=== PATIENT | female | born 1980 | race Caucasian/White ===

== ENCOUNTER 2020-09-29 06:08 | Emergency (ER) | payer OTHER ==
[2020-09-29] MEDS ORDERED: NS IV 1000 ML 1,000 ML IV STA (06:34)
[2020-09-29 06:40] LABS: BASOPHILS # (AUTO) 0.1 10^3/uL (0.0-0.1); BASOPHILS % (AUTO) 0 % (0-10); EOSINOPHILS # (AUTO) 0.1 10^3/uL (0.0-0.3); EOSINOPHILS % (AUTO) 0 % (0-10); HEMATOCRIT 42 % (35-52); HEMOGLOBIN 13.9 G/DL (11.5-16.0); LYMPHOCYTES # (AUTO) 2.2 X 10^3 (1.0-4.0); LYMPHOCYTES % (AUTO) 17 % (12-44); MEAN CORPUSCULAR HEMOGLOBIN 29 PG (25-34); MEAN CORPUSCULAR HGB CONC 33 G/DL (32-36); MEAN CORPUSCULAR VOLUME 87 FL (80-99); MEAN PLATELET VOLUME 10.1 FL (7.4-10.4); MONOCYTES # (AUTO) 0.7 X 10^3 (0.0-1.0); MONOCYTES % (AUTO) 5 % (0-12); NEUTROPHILS % (AUTO) 77 % (42-75); PLATELET COUNT 265 10^3/uL (130-400)
--- NOTE | 2020-09-29 06:43 | ED Abdominal Pain ---
General Chief Complaint: Abdominal/GI Problems Stated Complaint: STOMACHE PAIN/CRAMPS Nursing Triage Note: Pt complaining of left flank pain with abd pain and nausea. Sepsis Screen: No Definite Risk Source of Information: Patient Exam Limitations: No Limitations (KALYAN CHANG MD) History of Present Illness Date Seen by Provider: Sep 29, 2020 Time Seen by Provider: 06:38 Patient is a 39-year-old female presenting to the emergency department with a complaint of epigastric abdominal pain with sharp left flank pain. Patient states the symptoms woke her from her sleep with severe waves of sharp cramping pain in her epigastric region. She notes that the epigastric pain radiates into her left flank and is sharp and stabbing. No recent dietary changes. She describes it as as a knife is in her left flank. Pain in her left flank she thinks has possibly been going on for a week, but has worsened in intensity. She denies any dysuria, increased urinary frequency, foul-smelling urine. She has associated nausea, but no vomiting, no fevers. No previous similar episodes. She denies any specific exacerbating or relieving factors. No previous history of kidney stones. No recent NSAID use. Denies drug, alcohol, tobacco use. Patient is currently employed at the school. (KALYAN CHANG MD) Allergies and Home Medications Allergies Coded Allergies: No Known Drug Allergies (Unverified , 09/29/20) Patient Home Medication List Home Medication List Reviewed: Yes (KALYAN CHANG MD) Review of Systems Review of Systems Constitutional: No fever; weakness Respiratory: Denies Cough Cardiovascular: Denies Chest Pain Gastrointestinal: Abdominal Pain; Denies Constipated, Denies Diarrhea; Nausea; Denies Vomiting Genitourinary: Denies Burning; Flank Pain (KALYAN CHANG MD) All Other Systems Reviewed Negative Unless Noted: Yes (KALYAN CHANG MD) Past Xfnnikw-Fhuqpx-Xfvkrs Hx Patient Social History Alcohol Use: Denies Use Recreational Drug Use: No 2nd Hand Smoke Exposure: No Recent Foreign Travel: No Contact w/Someone Who Travel: No Recent Infectious Disease Expo: No Recent Hopitalizations: No Physical Abuse: No Sexual Abuse: No (KALYAN CHANG MD) Past Medical History Surgeries: Yes Tubal Ligation Respiratory: No Cardiac: No Neurological: No Genitourinary: No Gastrointestinal: No Musculoskeletal: No Endocrine: No HEENT: No Cancer: No Psychosocial: No Integumentary: No Blood Disorders: No (KALYAN CHANG MD) Family Medical History Reviewed Nursing Family Hx (KALYAN CHANG MD) Physical Exam Vital Signs Vital Signs - First Documented 09/29/20 06:18 Temp 36.4 Pulse 75 Resp 18 B/P (MAP) 173/80 (111) Pulse Ox 99 O2 Delivery Room Air (MINDY GOODMAN DO) Vital Signs Capillary Refill : Less Than 3 Seconds (KALYAN CHANG MD) Height/Weight/BMI Height: '" Weight: lbs. oz. kg; BMI Method: General Appearance: moderate distress HEENT: PERRL/EOMI, normal ENT inspection Neck: supple Respiratory: no respiratory distress, no accessory muscle use Cardiovascular: regular rate, rhythm, no edema Gastrointestinal: other (Patient has mild tenderness to palpation of the epigastric region, mild guarding is appreciated. She has left-sided flank pain to palpation. Remainder of her abdominal examination is benign without right upper or right lower quadrant abdominal pain.) Extremities: normal inspection Back: other (Left-sided CVA tenderness.) Neurologic/Psychiatric: no motor/sensory deficits, alert, normal mood/affect Skin: normal color, warm/dry (KALYAN CHANG MD) Progress/Results/Core Measures Results/Orders Lab Results Laboratory Tests Test 09/29/20 06:28 09/29/20 06:55 Range/Units White Blood Count 13.0 H 4.3-11.0 10^3/uL Red Blood Count 4.82 4.35-5.85 10^6/uL Hemoglobin 13.9 11.5-16.0 G/DL Hematocrit 42 35-52 % Mean Corpuscular Volume 87 80-99 FL Mean Corpuscular Hemoglobin 29 25-34 PG Mean Corpuscular Hemoglobin Concent 33 32-36 G/DL Red Cell Distribution Width 13.2 10.0-14.5 % Platelet Count 265 130-400 10^3/uL Mean Platelet Volume 10.1 7.4-10.4 FL Immature Granulocyte % (Auto) 0 % Neutrophils (%) (Auto) 77 H 42-75 % Lymphocytes (%) (Auto) 17 12-44 % Monocytes (%) (Auto) 5 0-12 % Eosinophils (%) (Auto) 0 0-10 % Basophils (%) (Auto) 0 0-10 % Neutrophils # (Auto) 10.0 H 1.8-7.8 X 10^3 Lymphocytes # (Auto) 2.2 1.0-4.0 X 10^3 Monocytes # (Auto) 0.7 0.0-1.0 X 10^3 Eosinophils # (Auto) 0.1 0.0-0.3 10^3/uL Basophils # (Auto) 0.1 0.0-0.1 10^3/uL Immature Granulocyte # (Auto) 0.0 0.0-0.1 10^3/uL Sodium Level 133 L 135-145 MMOL/L Potassium Level 4.1 3.6-5.0 MMOL/L Chloride Level 101 98-107 MMOL/L Carbon Dioxide Level 19 L 21-32 MMOL/L Anion Gap 13 5-14 MMOL/L Blood Urea Nitrogen 24 H 7-18 MG/DL Creatinine 1.24 0.60-1.30 MG/DL Estimat Glomerular Filtration Rate 48 BUN/Creatinine Ratio 19 Glucose Level 137 H 70-105 MG/DL Calcium Level 9.6 8.5-10.1 MG/DL Corrected Calcium 9.2 8.5-10.1 MG/DL Total Bilirubin 0.4 0.1-1.0 MG/DL Aspartate Amino Transf (AST/SGOT) 19 5-34 U/L Alanine Aminotransferase (ALT/SGPT) 20 0-55 U/L Alkaline Phosphatase 78 40-136 U/L Troponin I < 0.30 <0.30 NG/ML Total Protein 7.2 6.4-8.2 GM/DL Albumin 4.5 3.2-4.5 GM/DL Lipase 31 8-78 U/L Urine Color YELLOW Urine Clarity CLEAR Urine pH 8.5 5-9 Urine Specific Lapel 1.020 1.016-1.022 Urine Protein NEGATIVE NEGATIVE Urine Glucose (UA) NEGATIVE NEGATIVE Urine Ketones 1+ H NEGATIVE Urine Nitrite NEGATIVE NEGATIVE Urine Bilirubin NEGATIVE NEGATIVE Urine Urobilinogen 0.2 < = 1.0 MG/DL Urine Leukocyte Esterase NEGATIVE NEGATIVE Urine RBC (Auto) NEGATIVE NEGATIVE Urine RBC NONE /HPF Urine WBC NONE /HPF Urine Squamous Epithelial Cells 0-2 /HPF Urine Crystals PRESENT H /LPF Urine Amorphous Sediment MOD GUSTAVO PHOSPHATE H /LPF Urine Bacteria NONE /HPF Urine Casts NONE /LPF Urine Mucus NEGATIVE /LPF Urine Culture Indicated NO Urine Test NEGATIVE NEGATIVE (MINDY GOODMAN DO) My Orders Orders - MINDY GOODMAN DO Ondansetron Injection (Zofran Injectio (09/29/20 08:00) Ketorolac Injection (Toradol Injection) (09/29/20 08:00) Hydromorphone Injection (Dilaudid Inject (09/29/20 08:00) Ns Iv 1000 Ml (Sodium Chloride 0.9%) (09/29/20 08:00) Ceftriaxone For Iv Use (Rocephin For I (09/29/20 08:00) Tamsulosin Capsule (Flomax Capsule) (09/29/20 08:15) (MINDY GOODMAN DO) Medications Given in ED Current Medications Medications Dose Ordered Sig/La Route Start Time Stop Time Status Last Admin Dose Admin Al Hydrox/Mg Hydrox/Simethicone 30 ml ONCE ONCE PO 09/29/20 06:45 09/29/20 06:46 DC 09/29/20 06:45 30 ML Ceftriaxone Sodium 1000 mg/ Sterile Water 10 ml @ 200 mls/hr ONCE ONCE IV 09/29/20 08:00 09/29/20 08:02 DC 09/29/20 08:19 200 MLS/HR Famotidine 20 mg ONCE ONCE IVP 09/29/20 06:45 09/29/20 06:46 DC 09/29/20 06:44 20 MG Hydromorphone HCl 0.5 mg ONCE ONCE IV 09/29/20 06:45 09/29/20 06:46 DC 09/29/20 06:45 0.5 MG Hydromorphone HCl 1 mg ONCE ONCE IVP 09/29/20 08:00 09/29/20 08:01 DC 09/29/20 08:19 1 MG Ketorolac Tromethamine 15 mg ONCE ONCE IVP 09/29/20 08:00 09/29/20 08:01 DC 09/29/20 08:19 15 MG Lidocaine HCl 15 ml ONCE ONCE PO 09/29/20 06:45 09/29/20 06:46 DC 09/29/20 06:45 15 ML Ondansetron HCl 4 mg ONCE ONCE IVP 09/29/20 06:45 09/29/20 06:46 DC 09/29/20 06:44 4 MG Ondansetron HCl 4 mg ONCE ONCE IVP 09/29/20 08:00 09/29/20 08:01 DC 09/29/20 08:18 4 MG Tamsulosin HCl 0.4 mg ONCE ONCE PO 09/29/20 08:15 09/29/20 08:16 DC 09/29/20 08:20 0.4 MG (MINDY GOODMAN DO) Vital Signs/I&O 09/29/20 06:18 Temp 36.4 Pulse 75 Resp 18 B/P (MAP) 173/80 (111) Pulse Ox 99 O2 Delivery Room Air (MINDY GOODMAN DO) Blood Pressure Mean: 111 Progress Progress Note : Progress Note Patient appeared uncomfortable on examination. She did have abdominal pain in the epigastric region along with left-sided flank pain with CVA tenderness with guarding. Possible peptic ulcer disease versus gastritis versus kidney stone versus pancreatitis. Laboratory work, CT abdomen pelvis without contrast was ordered. Symptomatic control with Dilaudid, Zofran, Mylanta, oral lidocaine, IV Pepcid was ordered. Patient care was transferred to Dr. Goodman at 07 100 pending laboratory work, CT scan. (KALYAN CHANG MD) Progress Note : Progress Note Joni - I took over care at 0700 and went over result of testing with patient. Patient has a left proximal 7mm ureter calculus causing moderate hydronephrosis. She says that her pain is improved however she still does have an approximate 5 out of 10 pain. I spoke to the urologist on-call Dr. Samuel and he said his long as pain is controlled he is agreeable to outpatient treatment and asked me to start antibiotics Flomax and have her call the office tomorrow for outpatient treatment. I told her the plan and she very much appreciated this. She did not want to be in the hospital. I told her if she has worsening pain fevers vomiting or other general concerns she should come back to the emergency department immediately and then she will require admission to the hospital. Patient aware and agreeable with plan for discharge and verbalized understanding of the need for short-term follow-up and strict ED return precautions discussed as above. (MINDY GOODMAN DO) Initial ECG Impression Date: Sep 29, 2020 Initial ECG Impression Time: 06:53 Comment EKG obtained on 09/29/2020 at 06 38 significant for normal sinus rhythm, rate is 67, normal intervals, normal axis, no evidence of ventricular hypertrophy, no STEMI criteria. Slight elevation approximately half millimeter in V2, no reciprocal changes appreciated. No previous for comparison. (KALYAN CHANG MD) Departure Impression Primary Impression: Left ureteral calculus Additional Impressions: Hydronephrosis Leukocytosis Disposition: HOME, SELF-CARE Condition: Stable Departure-Patient Inst. Referrals: MATTHEW SAMUEL MD Patient Instructions: Renal Colic (DC) Add. Discharge Instructions: Drink plenty of fluids, call Dr. Samuel's office tomorrow morning. Come back with worsening pain. Thank you! All discharge instructions reviewed with patient and/or family. Voiced understanding. Scripts Cephalexin (Keflex) 500 Mg Capsule 500 MG PO TID, #21 CAP Prov: MINDY GOODMAN DO 09/29/20 Ondansetron (Ondansetron Odt) 4 Mg Tab.rapdis 4 MG PO Q6H PRN for NAUSEA/VOMITING-1ST LINE, #14 TAB Prov: MINDY GOODMAN DO 09/29/20 Oxycodone HCl/Acetaminophen (Percocet 5-325 mg Tablet) 1 Each Tablet 1 TAB PO Q4H for PAIN-MODERATE MDD 6 TABS for 7 Days, #14 TAB Prov: MINDY GOODMAN DO 09/29/20 Ibuprofen (Ibuprofen) 600 Mg Tablet 600 MG PO Q6H PRN for PAIN-MILD, #30 TAB Prov: MINDY GOODMAN DO 09/29/20 KALYAN CHANG MD Sep 29, 2020 06:43 MINDY GOODMAN DO Sep 29, 2020 08:46
[2020-09-29] MEDS ORDERED: ANTACID SUSP 30 ML UDC (MYLANTA) PO ONE (06:45)
[2020-09-29] MEDS ORDERED: HYDROmorphone 2 MG/ML VIAL (DILAUDID) IV ONE (06:45)
[2020-09-29] MEDS ORDERED: FAMOTIDINE 20MG/2ML IV (PEPCID) IVP ONE (06:45)
[2020-09-29] MEDS ORDERED: ONDANSETRON 4 MG/2 ML (SDV) Z0FRAN IVP ONE ×2 (06:45→08:00)
[2020-09-29] MEDS ORDERED: LIDOCAINE 2% VISCOUS 15 ML UDC PO ONE (06:45)
[2020-09-29 07:03] LABS: ALBUMIN 4.5 GM/DL (3.2-4.5); BILIRUBIN,TOTAL 0.4 MG/DL (0.1-1.0); CALCIUM 9.6 MG/DL (8.5-10.1); CREATININE SERUM 1.24 MG/DL (0.60-1.30); POTASSIUM 4.1 MMOL/L (3.6-5.0); TOTAL PROTEIN 7.2 GM/DL (6.4-8.2)
[2020-09-29 07:06] LABS: CLARITY,URINE CLEAR; COLOR,URINE YELLOW; PH,URINE 8.5 (5-9)
[2020-09-29 07:07] LABS: AMORPHOUS SEDIMENT,UR MOD AMOR PHOSPHATE /LPF; BILIRUBIN,URINE NEGATIVE (NEGATIVE); GLUCOSE, URINE (UA) NEGATIVE (NEGATIVE); KETONES,URINE 1+ (NEGATIVE); LEUKOCYTE ESTERASE ,URINE NEGATIVE (NEGATIVE); NITRITE,URINE NEGATIVE (NEGATIVE); PROTEIN,URINE NEGATIVE (NEGATIVE); SQUAMOUS EPITHELIAL CELL,UR 0-2 /HPF
--- NOTE | 2020-09-29 07:38 | Diagnostic Imaging Report ---
CT ABDOMEN/PELVIS WO TECHNIQUE: Unenhanced CT imaging of the abdomen and pelvis was performed. 2-D reformats are created and submitted for interpretation. Automatic exposure controls were utilized to optimize patient dose. INDICATION: Left flank pain. COMPARISON: None available. FINDINGS: Evaluation of the abdominal viscera is mildly limited without contrast. Lower chest: The lung bases are clear. No pericardial or pleural effusion. Peritoneum: No free intraperitoneal air or fluid. Liver and biliary system: Unenhanced liver is normal. The gallbladder is normal. No biliary duct dilation. Spleen and Pancreas: Spleen is normal. Unenhanced pancreas is grossly normal. Adrenals: Normal. tract: Mild to moderate left hydronephrosis with perinephric stranding due to an obstructing 7 mm stone at the left ureteropelvic junction. Additional nonobstructing 2 mm stone is present in the upper pole the right kidney. No ureteral stone on either side. Urinary bladder is decompressed. Uterus and ovaries are normal in appearance. GI tract: Stomach is partially filled fluid and air and there is no wall thickening. No bowel obstruction. No pericolonic inflammatory changes. The appendix is fluid-filled and mildly distended measuring up to 9 mm but there is no surrounding inflammatory change. Vasculature and Lymph nodes: Normal caliber aorta. No abdominal or pelvic lymphadenopathy. Musculoskeletal: No concerning osseous lesion. IMPRESSION: 1. A 7 mm obstructing stone is present at the left UPJ resulting in mild to moderate hydronephrosis. 2. Additional nonobstructing 2 mm stone in the upper pole the right kidney. 3. Mildly dilated proximal appendix measuring 9 mm does not have surrounding inflammatory change. This may be physiologic for this patient especially in the absence of clinical features of acute appendicitis. Dictated by: Dictated on workstation # [id number]
[2020-09-29] MEDS ORDERED: KETOROLAC 30 MG/ML VIAL IVP ONE (08:00)
[2020-09-29] MEDS ORDERED: HYDROmorphone 2 MG/ML VIAL (DILAUDID) IVP ONE (08:00)
[2020-09-29] MEDS ORDERED: cefTRIAXone FOR IV USE 1,000 MG in WATER (STERILE) FOR INJECTION 10 ML IV ONE (08:00)
[2020-09-29] MEDS ORDERED: NS IV 1000 ML 1,000 ML IV SCH (08:00)
[2020-09-29] MEDS ORDERED: TAMSULOSIN 0.4 MG (FLOMAX) CAP PO ONE (08:15)
[2020-09-29] MEDS ORDERED: ONDA4TAB11 PO (08:46)
[2020-09-29] MEDS ORDERED: CEPH-507 PO (08:46)
[2020-09-29] MEDS ORDERED: OXYC1TAB87 PO (08:46)
[2020-09-29] MEDS ORDERED: IBUP-1773 PO (08:46)
[2020-09-29 09:03] VITALS: BP 160/75
[2020-10-01] MEDS ORDERED: TMSL.4C PO ×2 (12:06→12:08)
[2020-10-01] MEDS ORDERED: PHEN-640 PO (12:08)
== END 2020-09-29 09:03 | disposition home or self-care (01) ==
LOC: ER FS 06:13
DX: N13.2 Hydronephrosis with renal and ureteral calculous obstruction (principal); D72.829 Elevated white blood cell count, unspecified
CPT/HCPCS: 36415; 74176; 80053; 81000; 83690; 84484; 84703; 85025; 93005

== ENCOUNTER → 2020-09-30 | Outpatient (CLI) | payer OTHER ==
[~2020-09-30] MED LIST: CEPH-507 PO; IBUP-1773 PO; ONDA4TAB11 PO; OXYC1TAB87 PO; PHEN-640 PO; TMSL.4C PO
--- NOTE | 2020-09-30 12:56 | Diagnostic Imaging Report ---
INDICATION: LT UPJ STONE/RT RENAL STONE. TECHNIQUE: 2 supine view of the abdomen 12:38 PM CORRELATION STUDY: Renal colic CT 09/29/2020 FINDINGS: Imaging of the abdomen demonstrates the bowel gas pattern to be unremarkable and without evidence for obstruction. 7 mm calcification left upper quadrant corresponds to the recently identified left pelvic stone. Likely relatively stable to perhaps slightly retracted in its location. Tiny punctate stones over superior pole right kidney also present. Likely tiny phlebolith calcifications of bilateral pelvis. IMPRESSION: 1. 7 mm stone left upper quadrant corresponds to the recently identified left UPJ stone. 2. Punctate calcification right upper pole remains present as well. Dictated by: Dictated on workstation # [id number]
== END ==
LOC: RAD 12:15
PROVIDERS: ATTEND Urology
DX: N20.0 Calculus of kidney (principal)
CPT/HCPCS: 74018

== ENCOUNTER 2020-10-01 09:54 | Day surgery (SDC) | payer OTHER ==
[~2020-10-01] VITALS: Ht 170.2 cm; Wt 113.6 kg
[2020-10-01] VITALS (10 sets, daily range): BP systolic 121–161; BP diastolic 57–108
[~2020-10-01 09:54] MED LIST changes: -PHEN-640 PO; -TMSL.4C PO
[2020-10-01] MEDS ORDERED: WATER (STERILE) FOR INJECTION 10 ML ONE (10:05)
[2020-10-01] MEDS ORDERED: cefTRIAXone 1,000 MG IV (ROCEPHIN) VIAL ONE (10:05)
--- NOTE | 2020-10-01 10:12 | Progress Note-Pre Operative ---
Pre-Operative Progress Note H&P Reviewed The H&P was reviewed, patient examined and no changes noted. Date Seen by Provider: Oct 01, 2020 Time Seen by Provider: 10:12 Date H&P Reviewed: Oct 01, 2020 Time H&P Reviewed: 10:12 Pre-Operative Diagnosis: LT RENAL STONE MATTHEW SAMUEL MD Oct 01, 2020 10:12
--- NOTE | 2020-10-01 10:13 | Progress Note-Post Operative ---
Post-Operative Progess Note Surgeon (s)/Partner Marketing Manager (s) Surgeon MATTHEW SAMUEL MD Partner Marketing Manager: NONE Pre-Operative Diagnosis LT RENAL STONE Post-Operative Diagnosis SAME Procedure & Operative Findings Date of Procedure 10/01/20 Procedure Performed/Findings CYSTOSCOPY, LT RENAL STONE MANIPULATION AND INSERTION OF STENT Anesthesia Type GENERAL Estimated Blood Loss Estimated blood loss (mL): NONE Specimens/Packing Specimens Removed NONE Packing: NONE MATTHEW SAMUEL MD Oct 01, 2020 10:13
--- NOTE | 2020-10-01 10:15 | Discharge Inst-Urology ---
Discharge Inst-Urology Reconcile Patient Problems Problems Reviewed?: Yes Final Diagnosis LT RENAL STONE Patient Instructions/Follow Up Plan/Assessment/Instructions Please make appointment to been seen in office Sunday 10/07, KUB prior to it. KUB on way home Increase oral fluids for 48 hours and then as needed. Diet and Activity as tolerated. If questions or concerns contact your physician Or seek help at emergency department. MATTHEW SAMUEL MD Oct 01, 2020 10:15
[2020-10-01] MEDS ORDERED: LACTATED RINGERS 1,000 ML IV PRN (10:30)
[2020-10-01] MEDS ORDERED: cefTRIAXone FOR IV USE 1,000 MG in WATER (STERILE) FOR INJECTION 10 ML IV ONE (10:30)
[2020-10-01] MEDS ORDERED: fentaNYL INJECTION 100 MCG/2 ML AMP ONE (10:33)
[2020-10-01] MEDS ORDERED: proPOfol 200 MG/20 ML (DIPRIVAN) VIAL IV ONE (10:33)
[2020-10-01] MEDS ORDERED: SEVOFLURANE (ULTANE) 15 ML INHAL SOLN ONE ×2 (10:33→10:56)
[2020-10-01] MEDS ORDERED: ONDANSETRON 4 MG/2 ML (SDV) Z0FRAN ONE (10:33)
[2020-10-01] MEDS ORDERED: MIDAZOLAM 2 MG/2 ML (VERSED) VIAL ONE (10:33)
[2020-10-01 10:53] LABS: PHOSPHORUS 2.2 MG/DL (2.3-4.7)
[2020-10-01] MEDS ORDERED: MEPERIDINE (DEMEROL) INJ 50 MG/ML IVP ONE (11:00)
[2020-10-01] MEDS ORDERED: morphine INJ 10 MG/ML 1ML (SYR OR VIAL) IVP ONE (11:00)
[2020-10-01] MEDS ORDERED: fentaNYL INJECTION 100 MCG/2 ML AMP IVP ONE (11:00)
[2020-10-01] MEDS ORDERED: ONDANSETRON 4 MG/2 ML (SDV) Z0FRAN IVP PRN (11:00)
--- NOTE | 2020-10-01 11:23 | Diagnostic Imaging Report ---
INDICATION: Left ureteral stone. TECHNIQUE: Two supine views of the abdomen at 10:09 AM. CORRELATION STUDY: 09/30/2020. FINDINGS: Scattered gas-filled loops of bowel are present. The possibility of a mild ileus pattern is not excluded. No findings to suggest a high degree obstruction. An approximately 7-8 mm stone projects over the inferior pole of the left kidney. No definitive calcification along the expected course of either ureter. IMPRESSION: Calcification projecting over the expected location of the inferior pole of the left kidney. This may be slightly retracted when compared to the prior CT examination. The possibility of retrograde migration of the stone is not excluded. Correlate with the patient's symptoms. Dictated by: Dictated on workstation # [id number]
--- NOTE | 2020-10-01 12:00 | NUR ---
TO AMB SURG FROM PAR PER CART. ALERT, DENIES COMPLAINTS. PO FLUIDS PROVIDED.
[2020-10-01] MEDS ORDERED: TMSL.4C PO ×4 (12:06→12:08)
[2020-10-01] MEDS ORDERED: PHEN-640 PO ×2 (12:08)
--- NOTE | 2020-10-01 12:30 | Anesthesia-General Post-Op ---
General Patient Condition Mental Status/LOC: Same as Preop Cardiovascular: Satisfactory Nausea/Vomiting: Absent Respiratory: Satisfactory Pain: Controlled Complications: Absent Post Op Complications Complications None Follow Up Care/Instructions Patient Instructions None needed. Anesthesia/Patient Condition Patient Condition Patient is doing well, no complaints, stable vital signs, no apparent adverse anesthesia problems. No complications reported per nursing. NILDA CASTILLO CRNA Oct 01, 2020 12:30
[2020-10-01] MEDS ORDERED: PHENAZOPYRIDINE 100 MG (PYRIDIUM) TABLET ONE (12:49)
--- NOTE | 2020-10-01 12:54 | NUR ---
REPORTS URETHRAL "IRRITATION", RATES 1. PYRIDIUM 200 MG GIVEN PO. HAS BEEN UP X2 TO BR, VOIDED CLEAR YELLOW URINE WITHOUT PROBLEM.
[2020-10-01] MEDS ORDERED: PHENAZOPYRIDINE 100 MG (PYRIDIUM) TABLET PO ONE (13:00)
--- NOTE | 2020-10-01 13:07 | Diagnostic Imaging Report ---
INDICATION: Calculus. COMPARISON: Earlier this same day. FINDINGS: A single frontal radiographic view of the abdomen was obtained and demonstrates interval placement of a left-sided double-J ureteral stent. A left renal calculus is again identified. No unexpected radiopaque foreign bodies are seen. Small bowel loops are nondistended. There is no large collection of free intraperitoneal air. Osseous structures show no acute abnormalities. IMPRESSION: Redemonstration of a left renal calculus with a new left-sided double-J ureteral stent. Dictated by: Dictated on workstation # [id number]
--- NOTE | 2020-10-01 13:50 | Diagnostic Imaging Report ---
EXAMINATION: Fluoroscopy at 11:10 AM. INDICATION: Left cystoscopy. FINDINGS: Fluoroscopic assistance was provided for Dr. Mejía during his left ureteroscopy with stent insertion procedure. 19.4 seconds of fluoroscopy time was utilized. A single spot film of the left abdomen was obtained. There is a ureteral stent in place overlying the expected location of the left kidney. IMPRESSION: Fluoroscopic assistance was provided for Dr. Mejía. Dictated by: Dictated on workstation # [id number]
--- NOTE | 2020-10-01 16:31 | OPERATIVE REPORT ---
DATE OF SERVICE: 10/01/2020 PREOPERATIVE DIAGNOSIS: Left renal stone at the UPJ. POSTOPERATIVE DIAGNOSES: 1. Left renal stone at the UPJ. 2. Cystorectocele. OPERATION PERFORMED: Cystoscopy, left renal stone manipulation and insertion of left stent. SURGEON: Deangelo Samuel MD. ANESTHESIA: General. COMPLICATIONS: None. DESCRIPTION OF PROCEDURE: Under satisfactory general anesthesia and the patient in the lithotomy position, the genitalia were prepped and draped in the usual sterile fashion. Cystoscope was introduced under vision and noted at least a 2+ cystorectocele. The bladder was inspected. Because of the cystocele, the ureteral orifices were pushed down and they were stenotic and facing somewhat upward. I reduced the cystocele using a sponge on a stick with the scrub nurse adjusting it to bring the ureteral orifice up since I was not able to insert a stent through it originally. Because of the small opening of the ureteral orifice, I went ahead and dilated it with a spiral tip ureteral catheter 5-Albanian and 6-Albanian to be able to insert a 6-Albanian stent guided fluoroscopically all the way up to the kidney, pushed the stone back into the kidney, removed the guidewire and the stent was seen nicely proximally fluoroscopically and distally endoscopically. Bladder was evacuated and the cystoscope was removed. The patient tolerated the procedure and anesthesia well and was sent to the recovery room in stable condition. PLAN: ESWL on her next Wednesday. We will see her at the office on Wednesday, explained to her the procedure and the preops. Job ID: [id number] DocumentID: [id number] Dictated Date: 10/01/2020 11:22:17 Ambulette Driver Date: 10/01/2020 16:30:46 Dictated By: DEANGELO SAMUEL MD
== END 2020-10-01 13:20 | disposition home or self-care (01) ==
LOC: SDC 09:54
PROVIDERS: ATTEND Urology
DX: N20.2 Calculus of kidney with calculus of ureter (principal); N81.10 Cystocele, unspecified; N81.6 Rectocele; Z20.828 Contact with and (suspected) exposure to other viral communicable diseases
CPT/HCPCS: 52332; 52352; 74018; 76000; 83970; 84100; 84550; 84703; 87081; U0002; 36415; 87635

== ENCOUNTER → 2020-10-07 | Outpatient (CLI) | payer OTHER ==
[~2020-10-07] MED LIST changes: +NITR-65 PO; +PHEN-640 PO; +TMSL.4C PO; +TRAM50TA3 PO
--- NOTE | 2020-10-07 15:46 | Diagnostic Imaging Report ---
INDICATION: Left nephrolithiasis KUB 2:37 PM There is left double-J ureteral stent. This appears to migrate into the proximal ureter. The lower portion remains in the urinary bladder. There is a 6 mm calculus in lower pole calyx of left kidney. IMPRESSION: Left nephrolithiasis. Ureter stent appears to have migrated out of the renal pelvis. Dictated by: Dictated on workstation # [id number]
== END ==
LOC: RAD 13:44
PROVIDERS: ATTEND Urology
DX: N20.1 Calculus of ureter (principal); N20.0 Calculus of kidney
CPT/HCPCS: 74018

== ENCOUNTER 2020-10-08 07:02 | Day surgery (SDC) | payer OTHER ==
[~2020-10-08] VITALS: Ht 170 cm; Wt 115.0 kg
[2020-10-08] VITALS (8 sets, daily range): BP systolic 116–157; BP diastolic 64–106
[~2020-10-08 07:02] MED LIST changes: -NITR-65 PO; -TRAM50TA3 PO
--- NOTE | 2020-10-08 07:14 | Progress Note-Pre Operative ---
Pre-Operative Progress Note H&P Reviewed The H&P was reviewed, patient examined and no changes noted. Date Seen by Provider: Oct 08, 2020 Time Seen by Provider: 07:14 Date H&P Reviewed: Oct 08, 2020 Time H&P Reviewed: 07:14 Pre-Operative Diagnosis: LT RENAL STONE MATTHEW SAMUEL MD Oct 08, 2020 07:14
[2020-10-08] MEDS ORDERED: cefTRIAXone FOR IV USE 1,000 MG in WATER (STERILE) FOR INJECTION 10 ML IV ONE (07:45)
[2020-10-08] MEDS ORDERED: LACTATED RINGERS 1,000 ML IV PRN (07:45)
--- NOTE | 2020-10-08 07:45 | Progress Note-Post Operative ---
Post-Operative Progess Note Surgeon (s)/Upper Cutter Machine (s) Surgeon MATTHEW SAMUEL MD Upper Cutter Machine: NONE Pre-Operative Diagnosis LT RENAL STONE Post-Operative Diagnosis SAME Procedure & Operative Findings Date of Procedure 10/08/20 Procedure Performed/Findings LT ESWL, CYSTOSCOPY AND REMOVAL OF STENT Anesthesia Type GENERAL Estimated Blood Loss Estimated blood loss (mL): NONE Specimens/Packing Specimens Removed NONE TO PATHOLOGY Packing: NONE MATTHEW SAMUEL MD Oct 08, 2020 07:45
--- NOTE | 2020-10-08 07:47 | Discharge Inst-Urology ---
Discharge Inst-Urology Reconcile Patient Problems Problems Reviewed?: Yes Final Diagnosis LT RENAL STONE Patient Instructions/Follow Up Plan/Assessment/Instructions Please make appointment to been seen in office Sunday 10/21, KUB prior to it KUB on way home Post ESWL instructions Increase oral fluids for 48 hours and then as needed. Diet and Activity as tolerated. If questions or concerns contact your physician Or seek help at emergency department. MATTHEW SAMUEL MD Oct 08, 2020 07:47
[2020-10-08] MEDS ORDERED: LIDOCAINE PF 2% 5 ML (XYLOCAINE) VIAL ONE (08:20)
[2020-10-08] MEDS ORDERED: fentaNYL INJECTION 100 MCG/2 ML AMP ONE (08:20)
[2020-10-08] MEDS ORDERED: proPOfol 200 MG/20 ML (DIPRIVAN) VIAL IV ONE (08:20)
[2020-10-08] MEDS ORDERED: ROCURONIUM 10 MG/ML 5 ML SYRINGE IV ONE (08:20)
[2020-10-08] MEDS ORDERED: ONDANSETRON 4 MG/2 ML (SDV) Z0FRAN ONE (08:20)
[2020-10-08] MEDS ORDERED: MIDAZOLAM 2 MG/2 ML (VERSED) VIAL ONE (08:20)
[2020-10-08] MEDS ORDERED: SEVOFLURANE (ULTANE) 15 ML INHAL SOLN ONE (08:21)
--- NOTE | 2020-10-08 08:58 | Diagnostic Imaging Report ---
Indication: Nephrolithiasis KUB 7:36 AM There is a 5 mm calculus projecting over the inferior pole of left kidney. There is a left double-J ureteral stent which has migrated into the proximal ureter. Bowel gas pattern is normal. IMPRESSION: Left nephrolithiasis. No change compared to the previous day. Dictated by: Dictated on workstation # [id number]
[2020-10-08] MEDS ORDERED: KETOROLAC 30 MG/ML VIAL ONE (09:18)
[2020-10-08] MEDS ORDERED: FUROSEMIDE 40 MG/4 ML INJ (LASIX) ONE (09:18)
[2020-10-08] MEDS ORDERED: fentaNYL INJECTION 100 MCG/2 ML AMP IVP ONE (10:00)
[2020-10-08] MEDS ORDERED: ONDANSETRON 4 MG/2 ML (SDV) Z0FRAN IVP PRN (10:00)
[2020-10-08] MEDS ORDERED: morphine INJ 10 MG/ML 1ML (SYR OR VIAL) IVP ONE (10:00)
[2020-10-08] MEDS ORDERED: MEPERIDINE (DEMEROL) INJ 50 MG/ML IVP ONE (10:00)
[2020-10-08] MEDS ORDERED: TRAM50TA3 PO (10:08)
[2020-10-08] MEDS ORDERED: NITR-65 PO (10:08)
[2020-10-08] MEDS ORDERED: TMSL.4C PO (10:08)
--- NOTE | 2020-10-08 10:16 | Anesthesia-General Post-Op ---
General Patient Condition Mental Status/LOC: Same as Preop Cardiovascular: Satisfactory Nausea/Vomiting: Absent Respiratory: Satisfactory Pain: Controlled Complications: Absent Post Op Complications Complications None Follow Up Care/Instructions Patient Instructions None needed. Anesthesia/Patient Condition Patient Condition Patient is doing well, no complaints, stable vital signs, no apparent adverse anesthesia problems. No complications reported per nursing. D/C home per [facility] [place] Criteria: Yes ASHLEY ORELLANA CRNA Oct 08, 2020 10:16
--- NOTE | 2020-10-08 11:26 | Diagnostic Imaging Report ---
EXAMINATION: AP supine abdomen INDICATION: Status post shockwave lithotripsy. COMPARISON: Multiple priors, most recent performed earlier today. FINDINGS: There is a nonobstructive bowel gas pattern. Scattered gas and stool is noted in the colon. No unusual stool burden. There has been interval removal of the left ureteral stent. The previously demonstrated 5 mm calculus overlying the lower pole of the left kidney is no longer well seen, with subtle amorphous calcification demonstrated in this area. No evidence of pneumoperitoneum on this supine study. No organomegaly or abnormal abdominal calcification is identified. Multiple small phleboliths overlie the pelvis, unchanged. No acute osseous abnormality is identified. IMPRESSION: Status post lithotripsy, with interval removal of left ureteral stent and previously demonstrated left lower pole renal calculus no longer well seen. Nonobstructive bowel gas pattern. Dictated by: Dictated on workstation # [id number]
--- NOTE | 2020-10-08 15:54 | OPERATIVE REPORT ---
DATE OF SERVICE: 10/08/2020 PREOPERATIVE DIAGNOSIS: Left renal stone. POSTOPERATIVE DIAGNOSIS: Left renal stone. OPERATION PERFORMED: Left ESWL, cystoscopy and removal of stent. SURGEON: Deangelo Samuel MD. ANESTHESIA: General. COMPLICATIONS: None. DESCRIPTION OF PROCEDURE: Under satisfactory general anesthesia, the patient in supine position on the ESWL table, the left renal stone was localized. Shocks were delivered at kV of 6, a total of 3000 shocks completely fragmented the stone. The patient was then put in the frog position, genitalia were prepped and draped in the usual sterile fashion. Flexible cystoscope was introduced in the bladder. The distal end of the left ureteral stent was visualized and grasped with a grasping forceps and removed completely and the patient tolerated the procedure and anesthesia well and was sent to recovery room in stable condition after receiving 40 mg of Lasix and 30 mg of Toradol IV. Job ID: [id number] DocumentID: [id number] Dictated Date: 10/08/2020 09:31:34 Beam Dyer Operator Date: 10/08/2020 15:54:18 Dictated By: DEANGELO SAMUEL MD
== END 2020-10-08 11:10 | disposition home or self-care (01) ==
LOC: SDC 07:02
PROVIDERS: ATTEND Urology
DX: N20.0 Calculus of kidney (principal); E66.9 Obesity, unspecified; Z68.39 Body mass index [BMI] 39.0-39.9, adult; Z79.899 Other long term (current) drug therapy; Z20.828 Contact with and (suspected) exposure to other viral communicable diseases
CPT/HCPCS: 50590; 52310; 74018; 84703; 87081; U0002; 87635

== ENCOUNTER → 2020-10-21 | Outpatient (CLI) | payer OTHER ==
[~2020-10-21] MED LIST changes: +NITR-65 PO; +TRAM50TA3 PO
--- NOTE | 2020-10-21 13:20 | Diagnostic Imaging Report ---
EXAMINATION: Abdomen 1 view HISTORY: LT RENAL STONE POST ESWL COMPARISON: Abdominal radiograph 10/08/2020 FINDINGS: There is moderate amount of gas and stool throughout the colon. Nonobstructive bowel gas pattern. No radiopaque foreign body. The lung bases are clear. The osseous structures are intact. No obvious renal calculus. IMPRESSION: No visualized renal calculus or other acute abnormality in the abdomen. Dictated by: Dictated on workstation # [id number]
[2020-10-21 14:42] LABS: URIC ACID 4.5 MG/DL (2.6-7.2)
== END ==
LOC: RAD 12:39
PROVIDERS: ATTEND Urology
DX: N20.0 Calculus of kidney (principal); Z98.890 Other specified postprocedural states
CPT/HCPCS: 36415; 74018; 83970; 84100; 84520; 84550